=== PATIENT | female | born 1940 | race Caucasian/White ===

== ENCOUNTER 2020-11-17 09:41 | Outpatient (CLI) | payer MEDICARE, OTHER, SELFPAY ==
--- NOTE | ~2020-11-17 | DEXA_ITS ---
Bone Density Report Name: Shauna Smith Age: 80 Sex: Female Ethnicity: White Date of : 1940 Indication: osteopenia; height loss; hysterectomy;postmenopausal Referring Provider: Matthew George Study: Bone densitometry was performed. Exam Date: November 17, 2020 Accession number: [id number] Bone Density: Region BMD T-score Z-score Classification AP Spine (L1-L4) 0.955 -0.8 1.8 Normal Femoral Neck (Left) 0.790 -0.5 1.8 Normal Total Hip (Left) 0.736 -1.7 0.3 Osteopenia Total Hip Bilateral Avg 0.713 -1.9 0.2 Osteopenia Femoral Neck (Right) 0.698 -1.4 0.9 Osteopenia Total Hip (Right) 0.688 -2.1 0.0 Osteopenia World Health Organization criteria for BMD impression classify patients as: Normal (T-score at or above -1.0), Osteopenia (T-score between -1.0 and -2.5), or Osteoporosis (T-score at or below -2.5). 10-year Fracture Risk(1): Major Osteoporotic Fracture 12% Hip Fracture 2.7% Reported Risk Factors: [place] (), Neck BMD=0.698, BMI=22.8 (1) FRAX(R) Version 3.08. Fracture probability calculated for an untreated patient. Fracture probability may be lower if the patient has received treatment. Previous Exams: Region Exam Age BMD T-score BMD Change BMD Change Date g/cm2 vs Baseline vs Previous AP Spine(L1-L4) 11/17/2020 80 0.955 -0.8 -0.037(-3.8%)# 0.093(10.7%)# 08/15/2015 75 0.863 -1.7 -0.130(-13.1%) -0.071(-7.6%)* 12/29/2012 72 0.934 -1.0 -0.059(-5.9%)# -0.002(-0.2%)# 08/31/2010 70 0.936 -1.0 -0.056(-5.7%)* -0.041(-4.2%)* 01/19/2008 67 0.977 -0.6 -0.016(-1.6%) 0.050(5.4%)* 12/30/2005 65 0.927 -1.1 -0.066(-6.6%)* -0.066(-6.6%)* 09/03/2002 62 0.993 -0.5 Total Hip(Left) 11/17/2020 80 0.736 -1.7 -0.140(-15.9%) -0.024(-3.1%) 10/13/2017 77 0.760 -1.5 -0.116(-13.3%) -0.020(-2.5%)# 08/15/2015 75 0.779 -1.3 -0.096(-11.0%) -0.027(-3.3%) 12/29/2012 72 0.806 -1.1 -0.070(-8.0%)# -0.026(-3.1%)# 08/31/2010 70 0.832 -0.9 -0.044(-5.0%)* -0.003(-0.3%) 01/19/2008 67 0.835 -0.9 -0.041(-4.7%)* 0.014(1.7%) 12/30/2005 65 0.821 -1.0 -0.055(-6.2%)* -0.055(-6.2%)* 09/03/2002 62 0.876 -0.5 Total Hip(Right) 11/17/2020 80 0.688 -2.1 -0.142(-17.1%) -0.036(-4.9%)* 10/13/2017 77 0.724 -1.8 -0.106(-12.8%) -0.013(-1.7%)# 08/15/2015 75 0.737 -1.7 -0.093(-11.2%) 0.000(0.0%) 12/29/2012 72 0.737 -1.7 -0.093(-11.2%) -0.064(-8.0%)# 08/31/2010 70 0.801 -1.2 -0.029(-3.5%)* 0.003(0.3%) 01/19/2008 67 0.799 -1.2 -0.031(-3.8%)* 0.012(1.5%) 12/30/2005 65 0.787 -1.3 -0.043(-5.2%)* -0.043(-5.2%)* 09/03/2002 7
--- NOTE | ~2020-11-17 | MM_ITS ---
EXAMINATION: MM screening ze BI w michael HISTORY: Screening TECHNIQUE: Craniocaudal and mediolateral oblique 3-D tomosynthesis images were obtained and synthetic 2-D images were generated. CAD analysis was submitted and interpreted. COMPARISON: Comparison to multiple prior studies sequentially, with oldest reviewed study dated 09/06. BREAST PARENCHYMAL COMPOSITION: There are scattered areas of fibroglandular density. FINDINGS: There is no evidence of suspicious mass, calcification, or architectural distortion to sugg est malignancy in either breast. There has been no suspicious interval change. IMPRESSION: 1. No mammographic evidence of malignancy. 2. Recommend routine screening mammography in one year. BI-RADS Category 1: Negative Reviewed, dictated and finalized at location A.
== END 2020-11-17 09:42 | disposition home or self-care (01) ==
LOC: ANHIMG 09:44
PROVIDERS: PCP Family Medicine Adolescent Medicine; Visit Provider Family Medicine Adolescent Medicine
DX: Z12.31 Encounter for screening mammogram for malignant neoplasm of breast (principal); Z78.0 Asymptomatic menopausal state; M85.89 Other specified disorders of bone density and structure, multiple sites
CPT/HCPCS: 77063; 77067; 77080

== ENCOUNTER 2021-09-24 02:21 | Day surgery (SDC) | payer MEDICARE, OTHER, SELFPAY ==
[2021-09-03 12:56] VITALS: BMI 21.6
--- NOTE | 2021-09-23 15:30 | PM.HPGS ---
History of Present Illness History of Present Illness Consent: Risks, benefits, and alternatives have been discussed and questions answered. Patient agrees to proceed with procedure. Chief complaint: diarrhea Narrative: Shauna Smith is a 81 year old female Who has had a great deal of difficulty with diarrhea.? This has been going on for few years but it became really troublesome in the past several months.? She was having about 10 watery loose stools per day.? She has a great deal of urgency with her bowel movements as well.? She has not had blood in her stools.? She in fact had a Hemoccult test that was negative.? She does see some mucus at times.? She has not had fever chills.? She has no significant abdominal pain.? Her appetite is good.? There has been no vomiting or weight loss. taking Imodium has helped to some extent. Also recent trial of dicyclomine seems to have been somewhat helpful. Review of Systems Review of Systems: All systems reviewed & are unremarkable except as noted in HPI and below PMFSH Past Medical History Medical History Cataract Surgical History Surgical History H/O right heart catheterization H/O: hysterectomy History of bladder suspension procedure History of total knee arthroplasty Family History Family History Father Colon cancer Hypertension Heart disease Social History Social History Smoking status: Never smoker Second hand tobacco smoke exposure: No Alcohol intake: current Drinks per week: 1 Substance use: never Substance use type: does not use Living arrangements: alone Gender identity (if verbalized by the patient): Female Sexual Orientation (if Verbalized by the Patient): Straight or Heterosexual Spiritual care concerns: No Agree to blood products: Yes Meds Home Medications and Allergies Home Medications Medication Instructions Recorded Confirmed Type aspirin 81 mg tablet,delayed 81 mg PO DAILY 08/25/21 09/15/21 History release carvedilol 12.5 mg tablet 12.5 mg PO BID 08/25/21 09/24/21 History ergocalciferol (vitamin D2) 50 mcg 50 mcg PO DAILY 08/25/21 09/15/21 History (2,000 unit) capsule loperamide 2 mg capsule (Imodium 2 mg PO Q6H PRN Diarrhea 08/25/21 09/15/21 History A-D) loratadine 10 mg tablet 10 mg PO DAILY 08/25/21 09/15/21 History ramipril 5 mg capsule 5 mg PO DAILY 08/25/21 09/15/21 History spironolactone 25 mg tablet 25 mg PO DAILY 08/25/21 09/15/21 History baclofen 10 mg tablet 10 mg PO QHS #10 tabs 09/15/21 09/24/21 Rx diclofenac sodium 75 mg 75 mg PO BID #60 tabs 09/15/21 09/24/21 Rx tablet,delayed release dicyclomine 20 mg tablet 20 mg PO TID #90 tabs 09/17/21 09/24/21 Rx Allergies Allergy/AdvReac Type Severity Reaction Status Date / Time codeine Allergy Unknown AGITATION; Verified 09/24/21 09:51 DRY EMESIS Sulfa (Sulfonamide AdvReac Intermediate NAUSEA/VOMI Verified 09/24/21 09:51 Antibiotics) TING Exam Resp: Auscultation: clear to auscultation bilaterally Cardio: Rate: regular rate Rhythm: regular rhythm GI: GI Palp: Yes Soft to palpation and No Tenderness to palpation present (GI) Assessment and Plan Assessment and plan (1) Chronic diarrhea: Code(s): K52.9 - Noninfective gastroenteritis and colitis, unspecified Status: Acute Assessment and Plan: Colonoscopy with possible biopsy or polypectomy or cautery or injection of substances.
[2021-09-24 09:56] VITALS: BP 152/73; PULSE 95; RESP 18; TEMP 36.3; O2SAT 98; BMI 21.2
[2021-09-24] MEDS: LACTATED RINGERS 1,000 ML 150 ML IV CONT (10:07)
--- NOTE | 2021-09-24 10:08 | WPDANESEPPF ---
Anes - Initial Pre Proc Eval Procedure: Operation Date: 09/24/21 11:00 Proposed Procedures p Colonoscopy - Fabián Giles MD Date/Time: 09/24/21 10:08 Surgeon: Fabián Giles MD Pre Op Diagnosis: diarrhea Patient Data Age: 81 Gender: F Height: 1.65 m Weight: 57.9 kg Last Vital Signs Temp 97.4 F L 09/24/21 09:56 Pulse 95 09/24/21 09:56 Resp 18 09/24/21 09:56 BP 152/73 H 09/24/21 09:56 Pulse Ox 98 09/24/21 09:56 O2 Del Method Room Air 09/24/21 09:56 Allergies Allergy/AdvReac Type Severity Reaction Status Date / Time codeine Allergy Unknown AGITATION; Verified 09/24/21 09:51 DRY EMESIS Sulfa (Sulfonamide AdvReac Intermediate NAUSEA/VOMI Verified 09/24/21 09:51 Antibiotics) TING Home Medications Medication Instructions Recorded Confirmed Type aspirin 81 mg tablet,delayed 81 mg PO DAILY 08/25/21 09/15/21 History release carvedilol 12.5 mg tablet 12.5 mg PO BID 08/25/21 09/24/21 History ergocalciferol (vitamin D2) 50 mcg 50 mcg PO DAILY 08/25/21 09/15/21 History (2,000 unit) capsule loperamide 2 mg capsule (Imodium 2 mg PO Q6H PRN Diarrhea 08/25/21 09/15/21 History A-D) loratadine 10 mg tablet 10 mg PO DAILY 08/25/21 09/15/21 History ramipril 5 mg capsule 5 mg PO DAILY 08/25/21 09/15/21 History spironolactone 25 mg tablet 25 mg PO DAILY 08/25/21 09/15/21 History baclofen 10 mg tablet 10 mg PO QHS #10 tabs 09/15/21 09/24/21 Rx diclofenac sodium 75 mg 75 mg PO BID #60 tabs 09/15/21 09/24/21 Rx tablet,delayed release dicyclomine 20 mg tablet 20 mg PO TID #90 tabs 09/17/21 09/24/21 Rx Patient hx anesthesia problems: none Family hx anesthesia problems: none Results Review: All pre-operative results and documents have been reviewed as part of the pre-operative evaluation. [facility] Past Medical History Medical History Cataract Surgical History Surgical History H/O right heart catheterization H/O: hysterectomy History of bladder suspension procedure History of total knee arthroplasty Family History Family History Father Colon cancer Hypertension Heart disease Social History Social History (Updated 09/15/21 @ 10:52 by Gemini Alegre MA) Smoking status: Never smoker Second hand tobacco smoke exposure: No Alcohol intake: current Drinks per week: 1 Substance use: never Substance use type: does not use Living arrangements: alone Gender identity (if verbalized by the patient): Female Sexual Orientation (if Verbalized by the Patient): Straight or Heterosexual Spiritual care concerns: No Agree to blood products: Yes Anes - Eval Final PreProcedure Day of Procedure 09/24/21 10:08 Patient weight: normal Heart: regular rate and rhythm Lungs: clear to auscultation Airway: Mallampati scale class II Neurological: alert and oriented Last oral intake: >/= 8 hours ASA classification: III Emergent: no Anesthetic plan: proceed Anesthesia type and monitoring: general GIVS and standard monitoring Results Review: All pre-operative results and documents have been reviewed as part of the pre-operative evaluation. Informed Consent: The patient's anesthetic plan and its attendant risks and benefits were discussed with the patient/family/POA. Questions were solicited and answers provided to the satisfaction of the patient/family/POA.
[2021-09-24] MEDS: SIMETHICONE ORAL SUSPENSION 20 MG/0.3 ML 30 ML BOTTLE 0.6 ML IRRIGATION (10:30)
[2021-09-24 10:39] VITALS: BP 113/69; PULSE 81; RESP 23; O2SAT 97
[2021-09-24 10:49] VITALS: BP 125/69; PULSE 81; RESP 24; O2SAT 100
[2021-09-24 10:59] VITALS: BP 134/68; PULSE 75; RESP 16; O2SAT 100
== END 2021-09-24 11:14 | disposition home or self-care (01) ==
PROVIDERS: PCP Family Medicine Adolescent Medicine; Visit Provider Internal Medicine Gastroenterology
PROC: 0DJD8ZZ Inspection of Lower Intestinal Tract, Via Natural or Artificial Opening Endoscopic (ICD-10-PCS; CPT 45378; principal; 2021-09-24 11:00)
DX: R19.7 Diarrhea, unspecified (principal); K57.30 Diverticulosis of large intestine without perforation or abscess without bleeding; Z79.82 Long term (current) use of aspirin
CPT/HCPCS: 45380; 88305; J2704; J7120

== ENCOUNTER 2021-12-24 08:27 | Outpatient (CLI) | payer MEDICARE, OTHER, SELFPAY ==
--- NOTE | ~2021-12-24 | MM_ITS ---
EXAMINATION: MM screening ze BI w michael HISTORY: Screening mammogram TECHNIQUE: Craniocaudal and mediolateral oblique 3-D tomosynthesis images were obtained and synthetic 2-D images were generated. CAD analysis was submitted and interpreted. COMPARISON: 11/17/2020, 12/14/2018, 10/13/2017 bilateral screening mammogram examinations BREAST PARENCHYMAL COMPOSITION: There are scattered areas of fibroglandular density. FINDINGS: Biopsy marker on the right; history of prior benign right breast biopsy. Occasional benign calcifications. There is no evidence of suspicious mass, calcification, or architectural distortion t o suggest malignancy in either breast. There has been no suspicious interval change. IMPRESSION: 1. No mammographic evidence of malignancy. 2. Recommend routine screening mammography in one year. BI-RADS Category 2: Benign finding(s). Reviewed, dictated and finalized at location A.
== END 2021-12-24 08:28 | disposition home or self-care (01) ==
PROVIDERS: PCP Family Medicine Adolescent Medicine; Visit Provider Family Medicine Adolescent Medicine
DX: Z12.31 Encounter for screening mammogram for malignant neoplasm of breast (principal)
CPT/HCPCS: 77063; 77067

== ENCOUNTER 2023-02-05 09:22 | Emergency (ER) | payer MEDICARE, OTHER, SELFPAY ==
[2023-02-05 09:39] VITALS: BP 117/65; PULSE 72; RESP 18; TEMP 36.7; O2SAT 100
--- NOTE | 2023-02-05 10:16 | ED.GENADULT ---
HPI - General Adult General Chief complaint: Skin/Abscess/Foreign Body Stated complaint: Mouth Sores,Lip Irritation Source: patient Mode of arrival: ambulatory Limitations: no limitations History of Present Illness HPI narrative: 82 y/o female presented for c/o right upper lip swelling and canker sore for about 3 days. States she may have bitten the inside of the mouth. Has applied canker sore cream to the site. Reports the pain is improving but the swelling persists. Denies lip, tongue, or throat itching, shortness of breath or wheezing. Related Data Home Medications Medication Instructions Recorded Confirmed aspirin 81 mg tablet,delayed 81 mg PO DAILY 08/25/21 02/05/23 release ergocalciferol (vitamin D2) 50 mcg 50 mcg PO DAILY 08/25/21 02/05/23 (2,000 unit) capsule loperamide 2 mg capsule (Imodium 2 mg PO Q6H PRN Diarrhea 08/25/21 02/05/23 A-D) loratadine 10 mg tablet 10 mg PO DAILY 08/25/21 02/05/23 ramipril 5 mg capsule 5 mg PO DAILY 08/25/21 02/05/23 spironolactone 25 mg tablet 25 mg PO DAILY 08/25/21 02/05/23 carvedilol 25 mg tablet 25 mg PO BID 07/21/22 02/05/23 apixaban 5 mg tablet (Eliquis) 2.5 mg PO BID 09/08/22 02/05/23 furosemide 20 mg tablet 20 mg PO PRN PRN Edema 02/05/23 02/05/23 Allergies Allergy/AdvReac Type Severity Reaction Status Date / Time codeine AdvReac Intermediate AGITATION; Verified 02/05/23 09:31 DRY EMESIS [id number] Reductase AdvReac Intermediate Other Verified 02/05/23 09:31 Inhibitor Sulfa (Sulfonamide AdvReac Intermediate NAUSEA/VOMI Verified 02/05/23 09:31 Antibiotics) TING Review of Systems Review of Systems: CONSTITUTIONAL: Denies body aches, fever, chills, or sweats. EYES: Denies visual changes, redness, or discharge. ENT: Reports lip ulcer and swelling Denies rhinorrhea, congestion, sore throat, or otalgia. CARDIOVASCULAR: Denies chest pain, palpitations, or edema. RESPIRATORY: Denies cough or dyspnea. GASTROINTESTINAL: Denies abdominal pain, nausea, vomiting, or diarrhea. SKIN: Denies rash, itching, or wounds. MUSCULOSKELETAL: Denies back pain, joint pain, or myalgia. NEUROLOGIC: Denies headache, numbness, tingling, or weakness. All systems reviewed & are unremarkable except as noted in HPI and below PMFSH Past Medical History Medical History (Updated 02/05/23 @ 10:26 by Debbie Watts APRN) Atherosclerotic heart disease of [place] coronary artery without angina pectoris Cataract CC (collagenous colitis) Chronic diarrhea Chronic systolic heart failure (2019) Essential (primary) hypertension Paroxysmal atrial fibrillation Surgical History Surgical History H/O right heart catheterization History of bladder suspension procedure History of hysterectomy with bilateral oophorectomy (2014) History of tonsillectomy History of total knee arthroplasty Family History Family History Father Colon cancer Hypertension Heart disease Social History Social History Smoking status: Never smoker Second hand tobacco smoke exposure: No Alcohol intake: current Drinks per week: 1 Substance use: never Substance use type: does not use Lack of Transportation: No Lack of Food: Never True Current Housing: I Have Housing Concerned About Future Housing: No Difficulty Paying Gas/Electric Bills: No Difficulty Paying for Meds: Decline to Answer Currently Unemployed: No Education: High School Diploma/GED Difficulty w/ Childcare or Family Care: No Living arrangements: alone Occupation/Education: retired Gender identity (if verbalized by the patient): Female Sexual Orientation (if Verbalized by the Patient): Straight or Heterosexual Spiritual care concerns: No Agree to blood products: Yes Comments At time of signature, I have reviewed and agree with nu
== END 2023-02-05 10:27 | disposition home or self-care (01) ==
PROVIDERS: Emergency Provider Nurse Practitioner Family; PCP Family Medicine Adolescent Medicine
DX: K12.0 Recurrent oral aphthae (principal); I25.10 Atherosclerotic heart disease of native coronary artery without angina pectoris; I11.0 Hypertensive heart disease with heart failure; I50.22 Chronic systolic (congestive) heart failure; I48.0 Paroxysmal atrial fibrillation; Z79.82 Long term (current) use of aspirin; Z79.01 Long term (current) use of anticoagulants
CPT/HCPCS: 99213; G0463

== ENCOUNTER 2023-07-13 10:23 | Outpatient (CLI) | payer MEDICARE, OTHER, SELFPAY ==
--- NOTE | ~2023-07-13 | MM_ITS ---
EXAMINATION: MM screening ze BI w michael HISTORY: Screening mammogram TECHNIQUE: Craniocaudal and mediolateral oblique 3-D tomosynthesis images were obtained and synthetic 2-D images were generated. CAD analysis was submitted and interpreted. COMPARISON: 12/24/2021, bilateral screening mammogram examinations BREAST PARENCHYMAL COMPOSITION: There are scattered areas of fibroglandular density. FINDINGS: Right breast biopsy marker; history of prior benign right breast biopsy. Occasional benign calcifications. There is no evidence of suspicious mass, calcification, or architectural distortion t o suggest malignancy in either breast. There has been no suspicious interval change. IMPRESSION: 1. No mammographic evidence of malignancy. 2. Recommend routine screening mammography in one year. BI-RADS Category 2: Benign finding(s). Reviewed, dictated and finalized at location A.
== END 2023-07-13 10:24 | disposition home or self-care (01) ==
LOC: ANHIMG 10:24
PROVIDERS: PCP Family Medicine Adolescent Medicine; Visit Provider Family Medicine Adolescent Medicine
DX: Z12.31 Encounter for screening mammogram for malignant neoplasm of breast (principal)
CPT/HCPCS: 77063; 77067

== ENCOUNTER 2023-12-29 08:01 | Outpatient (CLI) | payer MEDICARE, OTHER, SELFPAY ==
--- NOTE | ~2023-12-29 | DEXA_ITS ---
Bone Density Report Name: MAURICIO SAAVEDRA Age: 83 Sex: Female Ethnicity: White Date of : 1940 Indication: osteopenia; height loss; inflammatory bowel disease; hysterectomy; Referring Provider: MADDISON CORNELIUS Study: Bone densitometry was performed. Exam Date: December 29, 2023 Accession number: [id number] Bone Density: Region BMD T-score Z-score Classification AP Spine(L1-L4) 0.991 -0.5 2.3 Normal Femoral Neck (Left) 0.812 -0.3 2.1 Normal Total Hip (Left) 0.730 -1.7 0.5 Osteopenia Femoral Neck (Right) 0.671 -1.6 0.8 Osteopenia Total Hip (Right) 0.689 -2.1 0.1 Osteopenia Total Hip Mean 0.709 -1.9 0.3 Osteopenia World Health Organization criteria for BMD impression classify patients as: Normal (T-score at or above -1.0), Osteopenia (T-score between -1.0 and -2.5), or Osteoporosis (T-score at or below -2.5). 10-year Fracture Risk(1): Major Osteoporotic Fracture 13% Hip Fracture 3.7% Reported Risk Factors: [place] (), Neck BMD=0.671, BMI=23.3 (1) FRAX(R) Version 3.08. Fracture probability calculated for an untreated patient. Fracture probability may be lower if the patient has received treatment. Previous Exams: Region Exam Age BMD T-score BMD Change BMD Change Date g/cm2 vs Baseline vs Previous AP Spine (L1-L4) 12/29/2023 83 0.991 -0.5 0.057 (6.1%)# 0.035 (3.7%)* 11/17/2020 80 0.955 -0.8 0.021 (2.3%)# 0.093 (10.7%)# 08/15/2015 75 0.863 -1.7 -0.071 (-7.6%) -0.071 (-7.6%) 12/29/2012 72 0.934 -1.0 Total Hip(Left) 12/29/2023 83 0.730 -1.7 -0.076 (-9.4%) -0.006 (-0.8%) 11/17/2020 80 0.736 -1.7 -0.070 (-8.7%) -0.024 (-3.1%) 10/13/2017 77 0.760 -1.5 -0.046 (-5.7%) -0.020 (-2.5%) 08/15/2015 75 0.779 -1.3 -0.027 (-3.3%) -0.027 (-3.3%) 12/29/2012 72 0.806 -1.1 Total Hip(Right) 12/29/2023 83 0.689 -2.1 -0.048 (-6.6%) 0.001 (0.1%) 11/17/2020 80 0.688 -2.1 -0.049 (-6.6%) -0.036 (-4.9%) 10/13/2017 77 0.724 -1.8 -0.013 (-1.8%) -0.013 (-1.7%) 08/15/2015 75 0.737 -1.7 0.000 (0.0%) 0.000 (0.0%) 12/29/2012 72 0.737 -1.7 *Denotes significance at 95% confidence level, LSC for AP Spine = 0.022 g/cm2, LSC for Total Hip = 0.027 g/cm2 # Denotes dissimilar scan types or analysis methods Clinical Information Provided by Patient: Has used the following medications: Vitamin D, Calcium Has the following medical conditions: Inflammatory bowel diseases, Hysterectomy Patient jazmine maier
== END 2023-12-29 08:02 | disposition home or self-care (01) ==
LOC: ANHIMG 08:01
PROVIDERS: PCP Family Medicine Adolescent Medicine; Visit Provider Family Medicine Adolescent Medicine
DX: M85.89 Other specified disorders of bone density and structure, multiple sites (principal); Z78.0 Asymptomatic menopausal state
CPT/HCPCS: 77080

== ENCOUNTER 2024-07-19 14:25 | Outpatient (CLI) | payer MEDICARE, OTHER, SELFPAY ==
--- NOTE | ~2024-07-19 | MM_ITS ---
EXAMINATION: MM screening ze BI w michael HISTORY: Screening TECHNIQUE: Craniocaudal and mediolateral oblique 3-D tomosynthesis images were obtained and synthetic 2-D images were generated. CAD analysis was submitted and interpreted. COMPARISON: Comparison to multiple prior studies sequentially, with oldest reviewed study dated 09/06. BREAST PARENCHYMAL COMPOSITION: Not dense: There are scattered areas of fibroglandular density. FINDINGS: There is no evidence of suspicious mass, calcification, or architectural distortion to sugg est malignancy in either breast. There has been no suspicious interval change. IMPRESSION: 1. No mammographic evidence of malignancy. 2. Recommend routine screening mammography in one year. BI-RADS Category 1: Negative Reviewed, dictated and finalized at location A.
--- OUTSIDE RECORDS SUMMARY | 2024-07-19 14:52 | XMS_ITS | Encounter Summary ---
Author Organization [facility] Address [address] [place] [address] Phone Care Team Providers Care Sterilisation Technician Name Role Phone Theodore Sanchez MD Unavailable [phone] Matthew George MD Primary Care Prov ider Encounter Details Date Type Department Care Team (Late st Contact Info) Description 07/13/2022 Telephone [facility] Cardiology [address] [place] [address] [place] [address] Andrea Farrell CMA Social History Tobacco Use Types Packs/Day Years Used Date Smoking Tobacco: Never Smokeless Tobacco: Never Alcohol Use Standard Drinks/Week Comments Yes 0 (1 standard drink = 0.6 oz pur e alcohol) rare wine Comments Unknown Sex and Gender Information Value Date Recorded Sex Assigned at Not on file Legal 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
--- OUTSIDE RECORDS SUMMARY | 2024-07-19 14:52 | XMS_ITS | Clinical Summary ---
Author Organization [facility] [address] Address [address] [place] [address] Care Team Providers Care Senior Climate Advisor Name Role Phone Theodore Sanchez MD Unavailable [phone] Matthew George MD Primary Care Prov ider Allergies Active Allergy Reactions Criticality Noted Date Comments Codeine Nausea only Low 08/14/2018 Sulfa (Sulfonamide Antibiotics) Nausea & Vomiting Low 08/14/2018 Medications cholecalciferol (VITAMIN D-3) 2,000 unit capsule Take 1 capsule (2,000 Units total) by mouth daily Active cetirizine 10 mg capsule Take 10 mg by mouth daily Active zinc acetate 25 mg (zinc) capsule Take 25 mg by mouth daily Active calcium phosphate-vitamin D3 250 mg-10 mcg (400 unit) tablet,chewable Take 400 mg by mouth daily 4 08/10/19 25 Active nitroglycerin (NITROSTAT) 0.[address] 1 tablet (0.3 mg total) under the tongue every 5 (five) minutes as needed for chest pain 90 tablet 11 4 Active carvediloL (COREG) 25 mg tablet Take 1 tablet (25 mg total) by mouth 2 (two) times a day with meals 180 tablet 3 4 03/05/20 25 Active spironolactone (ALDACTONE) 25 mg tablet Take 1 tablet (25 mg total) by mouth daily 30 tablet 11 4 Active ramipriL (ALTACE) 5 mg capsule Take 1 capsule (5 mg total) by mouth daily 90 capsule 3 4 Active apixaban (Eliquis) 2.5 mg tabletIndications :atrial fibrillation Take 1 tablet (2.5 mg total) by mouth 2 (two) times a day 180 tablet 3 4 03/13/20 25 Active Active Problems Problem Noted Date Diagnosed Date Atrial fibrillation 11/15/2022 Assessment & Plan (08/18/2023 4:36 PM CDT): Asymptomatic paroxysmal atrial fibrillation. A strategy of rate control and anticoagulation remains appropriate. I will not make any changes at this time. The patient has a [id number] score of 4 (annualized risk of stroke 4%). I have therefore recommended continued anticoagulation for long-term thromboprophylaxis. The patient will follow-up with me in 12 months for an office visit and twelve- lead ECG. Assessment & Plan (02/11/2023 1:38 PM CDT): Paroxysmal atrial fibrillation, minimally symptomatic, presently managed with carvedilol. I will not make any changes at this time. The patient has a [id number] score of 4 (annualized risk of stroke 4%). I have therefore recommended continued anticoagulation for thromboprophylaxis. The patient will follow-up with me in 6 months for an office visit and twelve- lead ECG. Assessment & Plan (11/15/2022 2:10 PM CDT): EKG obtained in the office today and reviewed by me demonstrates SR. Continue carvedilol and apixaban. Stable angina pectoris 08/19/2022 Chronic systolic heart failure 08/11/2018 Chronic coronary artery disease 08/08/2018 Assessment & Plan (11/15/2022 2:09 PM CDT): Continue medical management. Cardiomyopathy, ischemic 08/08/2018 Assessment & Plan (11/15/2022 2:09 PM CDT): Ms. Wayne endorses NYHA Class II heart failure symptoms in the office today. She is euvolemic on exam and tolerating medical therapy. I have made no changes to her regimen and she will follow up with Dr. Ewing in January. Surgical History Surgery Date Site/Laterality Comments KNEE SURGERY 04/18/2014 - 2015 Complicated by postoperative blood clot HYSTERECTOMY 04/18/2015 - 2016 BLADDER SUSPENSION 04/18/2015 - 2016 CATARACT EXTRACTION 04/18/2016 - 2017 Medical History Medical History Date Comments Deep vein thrombosis (HCC) 2014 After knee surgery 2014 Hyperlipidemia Coronary artery disease Family History Relation Name Status Comments Father (Age 74) HEART DISE ASE Mother (Age 78) HEART DISE ASE Sister Alive 2 [employer] TS, [facility] Social History Tobacco Use Types Packs/Day Years Used Date Smoking Tobacco: Never Smokeless Tobacco: Never Tobacco Cessation:Counseling Given: Not Answered Alcohol Use Standard Drinks/Week Comments Yes 0 (1 standard drink = 0.6 oz pur e alcohol) rare wine Comments Unknown Sex and Gender Information Value Date Recorded Sex Assigned at Not on file Legal 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 Gender Identity Not on file Sexual Orientation Not on file Obstetrics History Last Filed Vital Signs Vital Sign Reading Time Taken Comments Blood Pressure 96/62 03/05/2024 12:05 PM CONDITIONING MACHINE OPERATOR Pulse 64 03/05/2024 12:05 PM CONDITIONING MACHINE OPERATOR Temperature - - Respiratory Rate 16 03/05/2024 12:05 PM CONDITIONING MACHINE OPERATOR Oxygen Saturation 99% 03/05/2024 12:05 PM CONDITIONING MACHINE OPERATOR Inhaled Oxygen Concentration - - Weight 60.3 kg (133 lb) 03/05/2024 12:05 PM CONDITIONING MACHINE OPERATOR Height 165.1 cm (5' 5 ) 03/05/2024 12:05 PM CONDITIONING MACHINE OPERATOR Body Mass Index 22.13 03/05/2024 12:05 PM CONDITIONING MACHINE OPERATOR Plan of Treatment Health Maintenance Due Date Last Done Comments Depression Screening 1941 Fall Risk Assessment 1941 Osteoporosis Screening-Bone Density Scan 1941 DTaP/Tdap/Td Vaccine (1 - Tdap) 1952 Hepatitis B Screening 1959 Zoster Vaccine (1 of 2) 1991 Well Visit 65+ 2006 Pneumococcal vaccine 65+ (2 of 2 - PCV) 02/03/2022 1 Covid-19 Vaccine (3 season) 2023, 09/05/2020 Influenza Vaccine (#1) 2023 01/18/2021 Insurance MEDICARE [facility] MEDICARE [employer] [place] MEDICARE [facility] [facility] [place] MEDICARE [facility] [place] Care Teams Senior Climate Advisor Relationship Specialty Start Date End Date Matthew George MD [address] [place] [address] PCP - General Family Medicine 02/09/21 Theodore Sanchez MD Consulting Physician Cardiology 08/28/18
--- OUTSIDE RECORDS SUMMARY | 2024-07-19 14:52 | XMS_ITS | Referral Summary ---
Author Organization [facility] [address] Address [address] [place] [address] Care Team Providers Care Hotel Room Attendant Name Role Phone Theodore Sanchez MD Unavailable [phone] Matthew George MD Primary Care Prov ider [...] at this time. The patient has a [id number] score of 4 (annualized risk of stroke 4%). I have therefore recommended continued anticoagulation for long-term thromboprophylaxis. The patient will follow-up with me in 12 months for an office visit and twelve- lead ECG. Assessment & Plan (02/11/2023 1:38 PM CDT): Paroxysmal atrial fibrillation, minimally symptomatic, presently managed with carvedilol. I will not make any changes at this time. The patient has a [id number] score of 4 (annualized risk of stroke [...] follow up with Dr. Ewing in January. 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 Gender Identity Not on file Sexual Orientation Not on file Last Filed Vital Signs Vital Sign Reading Time Taken Comments Blood Pressure 96/62 03/05/2024 12:05 PM INSTITUTIONAL COOK Pulse 64 03/05/2024 12:05 PM INSTITUTIONAL COOK Temperature - - Respiratory Rate 16 03/05/2024 12:05 PM INSTITUTIONAL COOK Oxygen Saturation 99% 03/05/2024 12:05 PM INSTITUTIONAL COOK Inhaled Oxygen Concentration - - Weight 60.3 kg (133 lb) 03/05/2024 12:05 PM INSTITUTIONAL COOK Height 165.1 cm (5' 5 ) 03/05/2024 12:05 PM INSTITUTIONAL COOK Body Mass Index 22.13 03/05/2024 12:05 PM INSTITUTIONAL COOK Plan of Treatment Not on file Insurance MEDICARE [facility] MEDICARE [facility] MEDICARE [employer] [place] [employer] [place] MEDICARE [employer] [place] Care Teams Hotel Room Attendant Relationship Specialty Start Date End Date Matthew George MD [address] [place] [id number] PCP - General Family Medicine 02/09/21 Theodore Sanchez MD Consulting Physician Cardiology 08/28/18
== END 2024-07-19 14:26 | disposition home or self-care (01) ==
PROVIDERS: PCP Family Medicine Adolescent Medicine; Visit Provider Family Medicine Adolescent Medicine
DX: Z12.31 Encounter for screening mammogram for malignant neoplasm of breast (principal)
CPT/HCPCS: 77063; 77067